=== PATIENT | female | born 2005 | race Caucasian/White ===

== ENCOUNTER 2023-04-17 11:26 | Emergency (ER) | payer MEDICAID, SELFPAY ==
[2023-04-17 11:27] VITALS: BP 123/70; PULSE 68; RESP 18; TEMP 37; O2SAT 99; BMI 25.4
--- NOTE | 2023-04-17 11:52 | EXP.UTC ---
Discharge Plan Disposition Patient Disposition: Home, Self-Care Condition: Good Prescriptions Prescriptions: New valacyclovir [Valtrex] 1 gram tablet 2,000 mg PO BID Qty: 4 2RF acyclovir 5 % cream 1 applic topical 5XDAY 4 Days Qty: 5 2RF Referrals Follow up/Referrals: Provider,Referral, [Primary Care Provider] - See instructions Activity Restrictions/Add. Instructions Additional Instructions/Restrictions: Drink plenty of fluids with the oral medications. I put refills on the medications so you can get them earlier the next time you have a bad fever blister like this. Take tylenol or ibuprofen for pain. Take the medications as directed. Follow up with your regular doctor. GO TO THE ER FOR ANY WORSENING SYMPTOMS Clinical Impressions Clinical Impression: Fever blister Stand Alone Forms Stand Alone Forms: Work/School Release Instructions Patient Instructions: Cold Sores, DI for Cold Sores, Acyclovir Topical, Valacyclovir Discharge ED Provider: Jeremiah Desai [facility] General Stated complaint: lip swollen Time Seen by Provider: 04/17/23 11:52 History of Present Illness Provider Complaint: She states that she has had worsening lip pain and swelling from several fever blisters for the past 2 days. Related Data Previous Rx's Medication Instructions Recorded acyclovir 5 % topical cream 1 applic topical 5XDAY 4 days #5 04/17/23 grams valacyclovir 1 gram tablet 2,000 mg PO BID #4 tabs 04/17/23 (Valtrex) Allergies Allergy/AdvReac Type Severity Reaction Status Date / Time No Known Allergies Allergy Verified 04/17/23 12:07 [facility] Disclaimer: The information contained in this section may have been updated after the patient was seen, as this information can be updated by other users. Social History Smoking Status: Never smoker alcohol intake: never current occupational status: student Travel in the last 8 weeks: None household members: family ROS Obtained: Yes All systems reviewed & no additional complaints except as documented Constitutional Constitutional: Denies chills and Denies fever(s) Eyes Eyes: Denies eye discharge ENT Ears, Nose, Mouth, and Throat: Denies dizziness, Denies otalgia and Denies sore throat Cardiovascular Cardiovascular: Denies chest pain Respiratory Respiratory: Denies shortness of breath, Denies chest congestion, Denies cough, Denies stridor and Denies wheezing Gastrointestinal Gastrointestingal: Denies nausea or vomiting Musculoskeletal Musculoskeletal: Reports system reviewed and no additional complaints, except as documented and Denies arthralgias Integumentary/Breasts Skin/Breast: Reports as per HPI Neurologic Neurologic: Denies dizziness and Denies paresthesias Allergic/Immunologic Allergic/Immunologic: Denies wheezing Physical Exam General General appearance: alert and in no apparent distress Head Head exam: atraumatic, normocephalic and normal inspection Eye Eye exam: Present normal appearance, PERRL and EOMI ENT ENT exam: Present mucous membranes moist, TM's normal bilaterally and normal external ear exam Expanded ENT Exam Nose exam: Absent sinus tenderness Nasal speculum exam: Bilateral: normal Mouth exam: Present lip swelling and tongue normal; Absent drooling, trismus or tongue swelling Teeth exam: Present normal inspection Throat exam: Present normal inspection Neck Neck exam: Present normal inspection, full ROM and trachea midline; Absent meningismus or lymphadenopathy Chest Chest inspection: Present normal inspection and symmetric chest wall rise; Absent tenderness Respiratory Respiratory exam: Present normal lung sounds bilaterally; Absent respiratory distress Cardiovascular Cardiovascular exam: Present regular rate and normal rhythm; Absent JVD Abdominal Exam Abdominal exam: Present soft and normal bowel sounds; Absent distention, tenderness or guarding
[2023-04-17 12:42] VITALS: BP 123/70; PULSE 68; RESP 18; TEMP 37; O2SAT 99
== END 2023-04-17 12:41 | disposition home or self-care (01) ==
PROVIDERS: Emergency Provider Nurse Practitioner Family
DX: B00.1 Herpesviral vesicular dermatitis (principal)
CPT/HCPCS: 99204; 99212; G0463